=== PATIENT | female | born 1990 | race African-American/Black ===

== ENCOUNTER 2021-09-14 16:44 | Emergency (ER) | payer SELFPAY ==
[2021-09-14 16:59] VITALS: BP 118/78; PULSE 87; TEMP 99.7; BMI 22.0
[2021-09-14] MEDS ORDERED: IBUPROFEN 600 MG TABLET (FP) PO ONE ×2 (17:48→18:09)
== END 2021-09-14 18:50 | disposition home or self-care (01) ==
LOC: JER 16:44
DX: J06.9 Acute upper respiratory infection, unspecified (principal)
CPT/HCPCS: 99283-25